=== PATIENT | female | born 1975 | race American Indian/Alaskan Native ===

== ENCOUNTER 2022-02-04 19:07 | Emergency (ER) | payer MEDICAID ==
--- NOTE | 2022-02-04 21:29 | Cat Scan Report ---
. CT HEAD WITHOUT CONTRAST INDICATION / CLINICAL INFORMATION: Seizure. TECHNIQUE: All CT scans at this location are performed using CT dose reduction for ALARA by means of automated e xposure control. COMPARISON: Head CT 12/13/2011 FINDINGS: HEMORRHAGE: No evidence of intracranial hemorrhage or extra-axial fluid collection. EXTRA-AXIAL SPACES: Cortical sulci, sylvian fissures and basilar cisterns have an unremarkable appear ance. VENTRICULAR SYSTEM: The third and lateral ventricles are of normal size and configuration. CEREBRAL PARENCHYMA: A small (5 mm diameter) focus of decreased brain parenchymal attenuation is seen adjacent frontal horn. This is compared to previous study. Remote small deep infarction in this loca tion is suspected. In the appropriate clinical setting the possibility of demyelinating disease could be considered. No additional areas of abnormal brain parenchymal attenuation are identified. There i s no indication of recent infarction. MIDLINE SHIFT OR HERNIATION: There is no mass effect. CEREBELLUM / BRAINSTEM: Brainstem and cerebellum have an unremarkable appearance. MIDLINE STRUCTURES:No abnormalities of the pituitary gland or pineal region are identified. INTRACRANIAL VESSELS: Calcified atherosclerotic plaque is seen along the course of the cavernous segm ents of both internal carotid arteries extending up through the communicating segments bilaterally. T his suggests an unusual degree of intercranial atherosclerotic disease given the patient's age of 46 years. ORBITS: visualized portions of the orbits have an unremarkable appearance. SOFT TISSUES of HEAD: No significant abnormality. CALVARIUM: Evaluation of bone windows reveals no abnormalities. PARANASAL SINUSES / MASTOID AIR CELLS: Visualized portions of the paranasal sinuses are free from inf lammatory mucosal disease. Mastoid air cells are normally pneumatized. IMPRESSION: 1. No acute intracranial abnormality. 2. Small focus of decreased attenuation adjacent to the frontal horn of the left lateral ventricle as described above. Signer Name: Alfredito Conway MD Signed: 02/04/2022 9:25 PM Workstation Name: [id number]
--- NOTE | 2022-02-04 21:45 | XRay Report ---
RIGHT SHOULDER 2 VIEWS INDICATION / CLINICAL INFORMATION: Right shoulder pain. History of witnessed seizure today. COMPARISON: None available. FINDINGS: BONES and JOINT(S): There is anterior dislocation of the humerus on the glenoid. The AC joint is main tained. No acute displaced fracture. SOFT TISSUES: No significant abnormality. ADDITIONAL FINDINGS: None. IMPRESSION: Anterior dislocation of the right shoulder. Postreduction radiographs are recommended. Signer Name: Yang Jones MD Signed: 02/04/2022 9:41 PM Workstation Name: [id number]
[2022-02-04 21:57] LABS: Alanine Aminotransferase 15 units/L (7-56); Albumin 4.4 g/dL (3.9-5); Blood Urea Nitrogen 8 mg/dL (7-17); Calcium 9.7 mg/dL (8.4-10.2); Hemolysis Index 40
[2022-02-04 21:59] LABS: BUN/Creatinine Ratio 16
[2022-02-04] MEDS ORDERED: MORPHINE 2 MG/1 ML INJ IM ONE (22:25)
[2022-02-04] MEDS ORDERED: ONDANSETRON 4 MG/2 ML INJ IV ONE (22:25)
[2022-02-04 22:32] LABS: Hemoglobin 12.5 gm/dl (10.1-14.3); Mean Corpuscular HGB Conc 33 % (30-34); Mean Corpuscular Volume 108 fl (79-97); Platelet Count 228 K/mm3 (140-440); Red Blood Count 3.52 M/mm3 (3.65-5.03); Red Cell Distribution Width 13.1 % (13.2-15.2)
[2022-02-04] MEDS ORDERED: levETIRAcetam 1000 MG/NS 0.75% 1,000 MG/100 ML BAG IV ONE (22:35)
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
[2022-02-04] MEDS ORDERED: SODIUM CHLORIDE 0.9% 1000 ML 1,000 ML IV ONE (23:14)
[2022-02-04] MEDS ORDERED: ETOMIDATE 20 MG/10 ML INJ IV ONE (23:16)
--- NOTE | 2022-02-05 01:52 | XRay Report ---
RIGHT SHOULDER 3 VIEW(S) INDICATION / CLINICAL INFORMATION: POST REDUCTION. COMPARISON: Right shoulder x-ray 02/04/2022; 2106 hours FINDINGS: Improved anatomic relationship of the right glenohumeral joint is demonstrated. IMPRESSION: 1. Improved relationship of the glenohumeral joint is suggested on this single AP view. Signer Name: Eric Gallegos II, MD Signed: 02/05/2022 1:47 AM Workstation Name: [id number]
[2022-02-05 04:27] LABS: Mucus,Urine FEW /HPF
[2022-02-05 04:29] LABS: Bilirubin,Urine Negative (Negative); Blood,Urine Negative (Negative); Color,Urine Yellow (Yellow)
[2022-02-05 04:32] LABS: HCG Qualitative,Urine Negative (Negative)
[2022-02-05 05:57] VITALS: BP 140/101
== END 2022-02-05 07:09 | disposition home or self-care (01) ==
LOC: ED 19:07
DX: S43.214A Anterior dislocation of right sternoclavicular joint, initial encounter (principal); R56.9 Unspecified convulsions; I10 Essential (primary) hypertension; F17.200 Nicotine dependence, unspecified, uncomplicated; F10.20 Alcohol dependence, uncomplicated; X58.XXXA Exposure to other specified factors, initial encounter; Y93.89 Activity, other specified; Y92.89 Other specified places as the place of occurrence of the external cause; Y99.8 Other external cause status
CPT/HCPCS: 23650; 36415; 70450; 73020; 73030; 80053; 81001; 81025; 85027; 96372; 96374; 96375; 99285; J1953; J2270; J2405; J3490; J7030; 99291